=== PATIENT | male | born 1975 | race American Indian/Alaskan Native ===

== ENCOUNTER 2020-02-24 15:08 | Emergency (ER) | payer OTHER ==
[2020-02-24 15:14] VITALS: BP 144/84
--- NOTE | 2020-02-24 16:17 | XRay Report ---
XR chest routine 2V INDICATION / CLINICAL INFORMATION: SOB, COVID+. COMPARISON: None available. FINDINGS: SUPPORT DEVICES: None. HEART /PULMONARY VASCULATURE: No significant abnormality. LUNGS / PLEURA: No significant pulmonary or pleural abnormality. No pneumothorax. ADDITIONAL FINDINGS: No significant additional findings. IMPRESSION: 1. No acute findings. Signer Name: Rigoberto Hartley MD Signed: 02/24/2020 4:12 PM Workstation Name: [id number]
--- NOTE | 2020-02-24 18:13 | Emergency Department Report ---
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 - Related Data Previous Rx's Medication Instructions Recorded Last Taken Type Amoxicillin/Potassium Clav 1 each PO BID #20 tablet 02/24/20 Unknown Rx [Augmentin 875-125 Tablet] Benzonatate [Tessalon Perles] 100 mg PO Q8HR #20 capsule 02/24/20 Unknown Rx predniSONE [Deltasone] 20 mg PO QDAY #5 tab 02/24/20 Unknown Rx traMADoL [Ultram] 50 mg PO Q6HR PRN #20 tablet 02/24/20 Unknown Rx Allergies Allergy/AdvReac Type Severity Reaction Status Date / Time No Known Allergies Allergy Unverified 02/24/20 15:13 ED Review of Systems ROS: Stated complaint: POSS COVID Other details as noted in HPI Comment: All other systems reviewed and negative ED Past Medical Hx - Past Medical History Previous Medical History?: No - Surgical History Past Surgical History?: No - Medications Home Medications: Home Medications Medication Instructions Recorded Confirmed Last Taken Type Amoxicillin/Potassium Clav 1 each PO BID #20 tablet 02/24/20 Unknown Rx [Augmentin 875-125 Tablet] Benzonatate [Tessalon Perles] 100 mg PO Q8HR #20 capsule 02/24/20 Unknown Rx predniSONE [Deltasone] 20 mg PO QDAY #5 tab 02/24/20 Unknown Rx traMADoL [Ultram] 50 mg PO Q6HR PRN #20 tablet 02/24/20 Unknown Rx ED Physical Exam - General Limitations: No Limitations General appearance: alert, in no apparent distress - Head Head exam: Present: atraumatic, normocephalic - Eye Eye exam: Present: normal appearance, PERRL, EOMI Pupils: Present: normal accommodation - ENT ENT exam: Present: mucous membranes moist, other (nasal sores and congestion) - Neck Neck exam: Present: normal inspection, full ROM - Respiratory Respiratory exam: Present: normal lung sounds bilaterally. Absent: respiratory distress, wheezes, rales, chest wall tenderness, accessory muscle use, decreased breath sounds - Cardiovascular Cardiovascular Exam: Present: regular rate, normal rhythm. Absent: systolic murmur, diastolic murmur, rubs, gallop - GI/Abdominal GI/Abdominal exam: Present: soft, normal bowel sounds - Rectal Rectal exam: Present: deferred - Extremities Exam Extremities exam: Present: normal inspection - Back Exam Back exam: Present: normal inspection - Neurological Exam Neurological exam: Present: alert, oriented X3 - Psychiatric Psychiatric exam: Present: normal affect, normal mood - Skin Skin exam: Present: warm, dry, intact, normal color. Absent: rash ED Course Vital Signs 02/24/20 15:13 Temperature 98.3 F Pulse Rate 87 Respiratory 20 Rate Blood Pressure 144/84 O2 Sat by Pulse 98 Oximetry Critical care attestation.: If time is entered above; I have spent that time in minutes in the direct care of this critically ill patient, excluding procedure time. ED Disposition Clinical Impression: Sinusitis, Cough Disposition: DC-01 TO HOME OR SELFCARE Is pt being admited?: No Does the pt Need Aspirin: No Condition: Stable Instructions: Cool Mist Vaporizer, Cough, Adult, [id number], Sinusitis, Adult, Upper Respiratory Infection, Adult, [id number], Sinus Headache, [id number] Prescriptions: Amoxicillin/Potassium Clav [Augmentin 875-125 Tablet] 1 each PO BID #20 tablet predniSONE [Deltasone] 20 mg PO QDAY #5 tab Benzonatate [Tessalon Perles] 100 mg PO Q8HR #20 capsule traMADoL [Ultram] 50 mg PO Q6HR PRN #20 tablet PRN Reason: Pain Referrals: PRIMARY CARE, [Primary Care Provider] - 3-5 Days AYANNA CUNHA MD [Staff Physician] - 3-5 Days
== END 2020-02-24 18:29 | disposition home or self-care (01) ==
LOC: ED 15:08
DX: J32.9 Chronic sinusitis, unspecified (principal); R05 Cough; Z79.2 Long term (current) use of antibiotics; Z79.899 Other long term (current) drug therapy
CPT/HCPCS: 71046